=== PATIENT | female | born 1980 | race African-American/Black ===

== ENCOUNTER 2019-06-07 12:05 | Emergency (ER) | payer MEDICAID ==
[~2019-06-07] VITALS: Ht 149.9 cm; Wt 93.0 kg
[2019-06-07] MEDS ORDERED: IBUPROFEN 600MG TABLET PO ONE (15:15)
[2019-06-07 15:39] VITALS: BP 133/91
== END 2019-06-07 16:52 | disposition home or self-care (01) ==
LOC: ER 12:05
DX: S76.812A Strain of other specified muscles, fascia and tendons at thigh level, left thigh, initial encounter (principal); W17.89XA Other fall from one level to another, initial encounter; Y93.89 Activity, other specified; Y92.89 Other specified places as the place of occurrence of the external cause; Y99.8 Other external cause status; Z88.0 Allergy status to penicillin
CPT/HCPCS: 81025; 93971; 99284; L1830

== ENCOUNTER 2020-06-10 09:30 | Emergency (ER) | payer OTHER ==
[~2020-06-10] VITALS: Ht 152.4 cm; Wt 94.0 kg
[2020-06-10 09:32] VITALS: BP 138/76
[2020-06-10] MEDS ORDERED: ACETAMINOPHEN WITH CODEINE 300/30MG TABLET PO ONE (10:00)
== END 2020-06-10 10:05 | disposition home or self-care (01) ==
LOC: ER 09:30
DX: M54.9 Dorsalgia, unspecified (principal); M25.532 Pain in left wrist; Z88.0 Allergy status to penicillin
CPT/HCPCS: 81025; 99282

== ENCOUNTER 2020-12-23 10:10 | Emergency (ER) | payer MEDICAID, OTHER ==
[~2020-12-23] VITALS: Ht 157.5 cm; Wt 105.0 kg
[2020-12-23] MEDS ORDERED: ONDANSETRON HCL 4MG/2ML INJ IV STA (10:40)
[2020-12-23] MEDS ORDERED: MORPHINE SULFATE 4 MG/ML CPJ (NOT FOR IM USE) IV ONE (10:45)
[2020-12-23] MEDS ORDERED: KETOROLAC 30MG/ML VIAL IV ONE (10:45)
[2020-12-23] MEDS ORDERED: SODIUM CHLORIDE 0.9% 1,000 ML IV ONE (10:45)
[2020-12-23 11:41] LABS: BASOPHILS % 0.8 % (0.0-2.0); EOSINOPHILS % 2.3 % (0.0-5.0); HEMATOCRIT. 34.7 % (36.0-48.0); HEMOGLOBIN. 11.4 g/dL (12.0-16.0); LYMPHOCYTES % 30.6 % (20.0-50.0); MEAN CORPUSCULAR HEMOGLOBIN 26.9 pg (28.0-32.0); MEAN CORPUSCULAR VOLUME 81.8 fL (81.0-99.0); MEAN PLATELET VOLUME 8.4 fl (7.4-10.4); MONOCYTES % 6.3 % (2.0-8.0); PLATELET 385 x1000/uL (130-400); RED BLOOD CELL COUNT 4.25 mill/uL (4.2-5.4); RED CELL DISTRIBUTION WIDTH 15.2 % (11.6-14.6)
[2020-12-23 11:50] LABS: PROTHROMBIN TIME 10.3 sec (9.6-11.0)
[2020-12-23 11:53] LABS: CHLORIDE 109 mEq/L (98-107)
[2020-12-23 12:07] LABS: B-HCG QUANTITATIVE < 1 mIU/mL (<3)
[2020-12-23] MEDS ORDERED: HYDR-4001 MT (14:24)
[2020-12-23] MEDS ORDERED: NAPR-681 MT (14:24)
[2020-12-23 14:55] LABS: CLARITY URINE CLOUDY (CLEAR); COLOR URINE DARK YELLOW (YELLOW); KETONES URINE TRACE (NEGATIVE); LEUKOCYTE ESTERASE URINE 1+ (NEGATIVE); NITRITE URINE NEGATIVE (NEGATIVE); OCCULT BLOOD URINE 3+ (NEGATIVE); PH URINE 6.5 (4.5-8.0); PROTEIN URINE 1+ (NEGATIVE); SPECIFIC GRAVITY URINE 1.029 (1.005-1.030)
[2020-12-23] MEDS ORDERED: IOHEXOL-300 100 ML BOTTLE ONE (15:15)
[2020-12-23 15:30] VITALS: BP 122/66
== END 2020-12-23 15:55 | disposition home or self-care (01) ==
LOC: ER 10:10
DX: R10.9 Unspecified abdominal pain (principal); N83.202 Unspecified ovarian cyst, left side; N83.201 Unspecified ovarian cyst, right side; F17.200 Nicotine dependence, unspecified, uncomplicated; Z88.0 Allergy status to penicillin
CPT/HCPCS: 36415; 74177; 76830; 76856; 80053; 81003; 81025; 83690; 84702; 85025; 85610; 86850; 86900; 86901; 87086; 96361; 96374; 96375; 99285; J1885; J2270; J2405; J7030; Q9967; Z7610